=== PATIENT | male | born 1995 | race African-American/Black ===

== ENCOUNTER → 2020-01-09 | Outpatient (CLI) | payer MEDICAID, OTHER ==
--- NOTE | 2020-01-09 14:00 | RAD ---
EXAM: 1. LUMBAR SPINE 3 VIEWS. 2. RIGHT KNEE 2 VIEWS. HISTORY: Low back and right knee pain COMPARISON: None. FINDINGS: There is mild straightening of the normal lumbar lordosis. Vertebral body heights are maintained, and no fractures are identified. Intervertebral disc heights are maintained. There are changes of internal fixation of a right femoral fracture superior to the margin of the [id number], with a retrograde intramedullary nail fixed distally by 2 screws. No acute fractures are seen. There is no joint effusion. Joint spaces and alignment appear preserved. IMPRESSION: 1. No acute fracture or clear degenerative change within the lumbar spine or right knee. Electronically signed by: Jacob Lynn MD (01/09/2020 1:57 PM) [id number]
--- NOTE | 2020-01-09 14:00 | RAD ---
EXAM: 1. LUMBAR SPINE 3 VIEWS. 2. RIGHT KNEE 2 VIEWS. HISTORY: Low back and right knee pain COMPARISON: None. FINDINGS: There is mild straightening of the normal lumbar lordosis. Vertebral body heights are maintained, and no fractures are identified. Intervertebral disc heights are maintained. There are changes of internal fixation of a right femoral fracture superior to the margin of the [id number], with a retrograde intramedullary nail fixed distally by 2 screws. No acute fractures are seen. There is no joint effusion. Joint spaces and alignment appear preserved. IMPRESSION: 1. No acute fracture or clear degenerative change within the lumbar spine or right knee. Electronically signed by: Jacob Lynn MD (01/09/2020 1:57 PM) [id number]
== END | disposition home or self-care (01) ==
LOC: RAD 10:47
DX: M25.561 Pain in right knee (principal); M40.46 Postural lordosis, lumbar region
CPT/HCPCS: 72100; 73560